=== PATIENT | female | born 1960 | race Caucasian/White ===

== ENCOUNTER 2017-11-12 17:11 | Emergency (ER) | payer MEDICARE, MEDICAID ==
[~2017-11-12] VITALS: Ht 162.6 cm; Wt 50.0 kg
[2017-11-12] MEDS ORDERED: KETOROLAC 60MG/2ML VIAL IM STA (22:17)
[2017-11-12 22:48] LABS: CHLORIDE 108 mEq/L (98-107)
[2017-11-12 22:52] LABS: ETHANOL BLOOD < 10 mg/dL
[2017-11-12 22:53] LABS: BASOPHILS % 0.6 % (0.0-2.0); EOSINOPHILS % 1.7 % (0.0-5.0); HEMATOCRIT. 34.8 % (36.0-48.0); LYMPHOCYTES % 33.2 % (20.0-50.0); MEAN CORPUSCULAR VOLUME 98.4 fL (81.0-99.0); MEAN PLATELET VOLUME 9.3 fl (7.4-10.4); MONOCYTES % 6.6 % (2.0-8.0); NEUTROPHILS % 57.9 % (40.0-76.0); PLATELET 215 x1000/uL (130-400); RED BLOOD CELL COUNT 3.53 mill/uL (4.2-5.4); RED CELL DISTRIBUTION WIDTH 16.4 % (11.6-14.6)
[2017-11-12 23:05] LABS: CLARITY URINE CLEAR (CLEAR); COLOR URINE YELLOW (YELLOW); KETONES URINE NEGATIVE (NEGATIVE); LEUKOCYTE ESTERASE URINE 1+ (NEGATIVE); NITRITE URINE NEGATIVE (NEGATIVE); OCCULT BLOOD URINE NEGATIVE (NEGATIVE); PROTEIN URINE NEGATIVE (NEGATIVE); SPECIFIC GRAVITY URINE 1.008 (1.005-1.030); UROBILINOGEN URINE 0.2 E.U./dL (0.2-1.0)
[2017-11-12 23:15] LABS: *BENZODIAZEPINES SCREEN URINE NEGATIVE (NEGATIVE)
[2017-11-12 23:16] LABS: *AMPHETAMINES SCREEN URINE NEGATIVE (NEGATIVE); *BARBITURATES SCREEN URINE NEGATIVE (NEGATIVE); *COCAINE SCREEN URINE NEGATIVE (NEGATIVE); CANNABINOID URINE SCREEN NEGATIVE (NEGATIVE); METHADONE URINE SCREEN NEGATIVE (NEGATIVE); OPIATES URINE SCREEN NEGATIVE (NEGATIVE); PHENCYCLIDINE URINE SCREEN NEGATIVE (NEGATIVE)
[2017-11-13] MEDS ORDERED: CYCLOBENZAPRINE 10MG TABLET PO ONE (01:15)
[2017-11-13] MEDS ORDERED: HYDROCODONE/ACETAMINOPHEN 5/325MG TABLET PO ONE (01:15)
[2017-11-13 05:39] VITALS: BP 123/66
== END 2017-11-13 06:26 | disposition home or self-care (01) ==
LOC: ER 17:30
DX: M54.5 Low back pain (principal); M19.90 Unspecified osteoarthritis, unspecified site
CPT/HCPCS: 36415; 72110; 80053; 80305; 81003; 85025; 96372; 99285; G0482; J1885

== ENCOUNTER 2019-08-15 05:02 | Emergency (ER) | payer MEDICARE, MEDICAID ==
[~2019-08-15] VITALS: Ht 162.6 cm; Wt 52.3 kg
[2019-08-15] MEDS ORDERED: SODIUM CHLORIDE 0.9% 1,000 ML IV ONE (08:37)
[2019-08-15 11:13] VITALS: BP 121/83
== END 2019-08-15 11:36 | disposition left against medical advice (07) ==
LOC: ER 05:02
DX: R55 Syncope and collapse (principal); G47.00 Insomnia, unspecified; C20 Malignant neoplasm of rectum; C79.31 Secondary malignant neoplasm of brain; M19.90 Unspecified osteoarthritis, unspecified site; Z98.890 Other specified postprocedural states
CPT/HCPCS: 70450; 71045; 93005; 99284; J7030

== ENCOUNTER 2022-09-14 17:01 | Emergency (ER) | payer OTHER, MEDICAID ==
[~2022-09-14] VITALS: Ht 167.6 cm; Wt 65.0 kg
[2022-09-14 17:03] VITALS: BP 105/50
[2022-09-14] MEDS ORDERED: ONDANSETRON HCL 4MG/2ML INJ IV STA (18:10)
[2022-09-14] MEDS ORDERED: MORPHINE SULFATE 4 MG/ML CPJ (NOT FOR IM USE) IV STA (18:10)
[2022-09-14] MEDS ORDERED: SODIUM CHLORIDE 0.9% 1,000 ML IV ONE (18:15)
[2022-09-14] MEDS ORDERED: ONDANSETRON HCL 4MG/2ML INJ IM ONE (21:00)
[2022-09-14] MEDS ORDERED: MORPHINE SULFATE 4 MG/ML CPJ (NOT FOR IM USE) IV ONE (21:00)
== END 2022-09-14 23:14 | disposition left against medical advice (07) ==
LOC: ER 17:01 → CANBEDREQ 09-15 08:51
DX: R14.0 Abdominal distension (gaseous) (principal); K56.609 Unspecified intestinal obstruction, unspecified as to partial versus complete obstruction; K56.41 Fecal impaction; Z85.9 Personal history of malignant neoplasm, unspecified
CPT/HCPCS: 71045; 74176; 93005; 96372; 96374; 99285; J2270; J2405; J7030